=== PATIENT | female | born 1940 | race African-American/Black ===

== ENCOUNTER 2017-07-28 07:40 | Day surgery (SDC) | payer MEDICARE, BC ==
[~2017-07-28 07:40] MED LIST: BUPIVACAINE HCL 0.75% INJ/PF (7.5 MG/1 ML) 10 ML SDV OD PRN; CHONDR SU A NA/HYALUR INTRAOC KIT (SURGICARE) ONE; EPINEPHRINE INJ/PF 1 MG/1 ML AMPULE ONE; KETOROLAC TROMETHAMINE 0.45% 4 DROP/0.4 ML DROPERETTE OD PRN; LIDOCAINE 4% INJ/PF (40 MG/ML) 5 ML AMPUL OD PRN
[2017-07-28] MEDS: CYCLOPENTOLATE 0.2%/PHENYLEPHRINE 1% OPH SOLN 2 ML OD PRN ×3 (08:03→08:17)
[2017-07-28] MEDS: BESIFLOXACIN HCL 0.6% OPH SUSP 5 ML BOTTLE OD PRN ×4 (08:03→08:52)
[2017-07-28] MEDS: TETRACAINE HCL 0.5% OPH SOLN 0.6 ML DROPERETTE OD PRN ×2 (08:03→08:17)
[2017-07-28] MEDS: TROPICAMIDE 1% OPH SOLN 3 ML OD PRN ×3 (08:03→08:17)
[2017-07-28] MEDS ORDERED: MIDAZOLAM 2 MG/2 ML INJ ONE (08:04)
[2017-07-28] MEDS ORDERED: ONDANSETRON HCL INJ/PF 4 MG/2 ML SDV ONE (08:04)
[2017-07-28] MEDS ORDERED: FENTANYL CITRATE INJ/PF 100 MCG/2 ML AMPUL ONE (08:04)
--- NOTE | 2017-07-28 09:23 | [facility] DISCHARGE SUMMARY E ---
[facility] Discharge Summary NAME: GOPI DENT AGE: 77Y ADMITTED: 07/28/2017 DISCHARGED: 07/28/2017 HOSPITAL COURSE: Ms. Dent is a 76-year-old lady who underwent uneventful cataract extraction with Toric intraocular lens implant, right eye, on 07/28/2017. She will be discharged to home. She is instructed to resume preoperative medications, take Tylenol as needed for discomfort, to keep her eye shielded, to use Besivance, Durezol, and Ilevro at 3 p.m. and 8 p.m., and to followup in my office in 1 day. DICTATING PHYSICIAN: EFREN DIETZ M.D. [id number] PHY#: [id number] ID: [id number] JOB#: [id number] ACCT: [id number] cc:EFREN DIETZ M.D. >
--- NOTE | 2017-07-28 09:23 | [facility] OPERATIVE REPORT E ---
[facility] Operative Report NAME: GOPI DENT AGE: 77Y DATE OF SURGERY: 07/28/2017 ROOM: PREOPERATIVE DIAGNOSIS: CATARACT RIGHT EYE. POSTOPERATIVE DIAGNOSIS: CATARACT RIGHT EYE. OPERATION: Phacoemulsification with Toric intraocular lens right eye. SURGEON: EFREN DIETZ M.D. ANESTHESIA: Topical with MAC. INDICATIONS FOR SURGERY: Difficulty reading and driving. Best corrected visual acuity 20/50. PROCEDURE: The patient was placed in the seated position and the 0, 180, and 270-degree axis of the eye was marked using the marking level. Prior to placement of the lens implant, the 166-degree axis was marked on the eye, and the lens was centered at this axis. The patient was brought to the Operating Room and placed on the operative table. Following tetracaine drops, topical anesthesia was administered. This consisted of instrument wipe pledgets soaked in a solution of 4% Xylocaine mixed with 0.75% Marcaine in a 1:2 ratio. A 2 x 1 cm pledget was placed in the superior fornix. A 1 x 1 cm pledget was placed in the inferior fornix. The eye was patched shut for 5 minutes. The patch was removed. The eye was sterilely prepped and draped in the usual manner. Lid speculum was placed in the eye. The pledgets were removed. 4-0 black silk sutures were placed around the superior and the inferior rectus muscles to be used as traction. A conjunctival peritomy was made at the 10 o'clock position. Hemostasis was obtained with bipolar cautery. A posterior limbal groove was created using a crescent knife and dissected anteriorly towards the cornea. A sharp point blade was used to create a paracentesis site at the 2 o'clock position. A 2.4 mm keratome was used to enter the anterior chamber through the groove. Viscoelastic was injected into the anterior chamber. An anterior capsulotomy was performed using Utrata forceps in a capsulorrhexis fashion. Hydrodissection and hydrodelineation were performed. Phacoemulsification was performed in agjdaw-izj-fuqzyhk technique. A total of 45 seconds phaco time was used. Following this, the I/A unit was used to remove residual cortex. Viscoelastic was injected into the capsular bag. Intraocular lens model [id number], 21.0 diopters, serial number [id number] was placed in the capsular bag. The I/A unit was used to remove residual viscoelastic. The wound was seen to be watertight under high and low pressure, and no sutures were placed. The intraocular lens was well centered. The pressure was adjusted in the eye to normal pressure. The 4-0 black silk sutures and lid speculum were removed. The eye was shielded after Besivance drops were placed. The patient tolerated the procedure well and was sent to the Recovery Room in good condition. DICTATING PHYSICIAN: EFREN DIETZ M.D. DICTATING PHYSICIAN: EFREN DIETZ M.D. [id number] PHY#: [id number] ID: [id number] JOB#: [id number] ACCT: [id number] cc:EFREN DIETZ M.D. > MTDD
== END 2017-07-28 09:35 | disposition home or self-care (01) ==
LOC: SC 07:40
PROVIDERS: ATTEND Ophthalmology
PROC: 08RJ3JZ Replacement of Right Lens with Synthetic Substitute, Percutaneous Approach (ICD-10-PCS; principal; 2017-07-28 08:30)
DX: H25.813 Combined forms of age-related cataract, bilateral (principal); H04.123 Dry eye syndrome of bilateral lacrimal glands; H52.03 Hypermetropia, bilateral; D64.9 Anemia, unspecified; M19.90 Unspecified osteoarthritis, unspecified site
CPT/HCPCS: 66984; J2250; J3490 ×3; A9270; J0171; J3010; J2405; 142

== ENCOUNTER 2017-09-01 11:02 | Day surgery (SDC) | payer MEDICARE, OTHER ==
[~2017-09-01 11:02] MED LIST changes: -BUPIVACAINE HCL 0.75% INJ/PF (7.5 MG/1 ML) 10 ML SDV OD PRN; +BUPIVACAINE HCL 0.75% INJ/PF (7.5 MG/1 ML) 10 ML SDV OS PRN; -KETOROLAC TROMETHAMINE 0.45% 4 DROP/0.4 ML DROPERETTE OD PRN; +KETOROLAC TROMETHAMINE 0.45% 4 DROP/0.4 ML DROPERETTE OS PRN; +LIDOCAINE 1% INJ-PF (10 MG/ML) 30 ML SDV ONE; -LIDOCAINE 4% INJ/PF (40 MG/ML) 5 ML AMPUL OD PRN; +LIDOCAINE 4% INJ/PF (40 MG/ML) 5 ML AMPUL OS PRN
[2017-09-01] MEDS: TROPICAMIDE 1% OPH SOLN 3 ML OS PRN ×3 (11:15→11:39)
[2017-09-01] MEDS: CYCLOPENTOLATE 0.2%/PHENYLEPHRINE 1% OPH SOLN 2 ML OS PRN ×3 (11:15→11:39)
[2017-09-01] MEDS: BESIFLOXACIN HCL 0.6% OPH SUSP 5 ML BOTTLE OS PRN ×3 (11:16→12:15)
[2017-09-01] MEDS ORDERED: MIDAZOLAM 2 MG/2 ML INJ ONE (11:20)
[2017-09-01] MEDS: TETRACAINE HCL 0.5% OPH SOLN 0.6 ML DROPERETTE OS PRN ×2 (11:23→11:40)
[2017-09-01] MEDS ORDERED: POVIDONE-IODINE 5% OPH PREP SOLN 30 ML ONE (11:50)
--- NOTE | 2017-09-01 12:49 | [facility] DISCHARGE SUMMARY E ---
[facility] Discharge Summary NAME: GOPI DENT AGE: 77Y ADMITTED: 09/01/2017 DISCHARGED: 09/01/2017 FINAL DIAGNOSIS: CATARACT, LEFT EYE. HOSPITAL COURSE: Ms. Dent is a 77-year-old lady who underwent uneventful cataract extraction with Toric intraocular lens implant, left eye. She will be discharged to home. She is instructed to resume her preoperative medications, take Tylenol as needed for discomfort, keep her eye shielded, to use Besivance, Durezol, and Ilevro at 3 p.m. and 8 p.m. To follow up in my office in 1 day. DICTATING PHYSICIAN: EFREN DIETZ M.D. [id number] PHY#: [id number] ID: [id number] JOB#: [id number] ACCT: [id number] cc:EFREN DIETZ M.D. >
--- NOTE | 2017-09-01 12:49 | [facility] OPERATIVE REPORT E ---
[facility] NAME: GOPI DENT AGE: 77Y DATE OF SURGERY: 09/01/2017 ROOM: [facility] Operative Report PREOPERATIVE DIAGNOSIS: CATARACT, LEFT EYE. POSTOPERATIVE DIAGNOSIS: CATARACT, LEFT EYE. PROCEDURE PERFORMED: PHACOEMULSIFICATION WITH TORIC INTRAOCULAR LENS, LEFT EYE. SURGEON: EFREN DIETZ MD ANESTHESIA: TOPICAL WITH MAC. INDICATIONS FOR SURGERY: Difficulty reading road signs and glare. Visual acuity with glare 20/200. PROCEDURE: Prior to the surgery, the patient was placed in a seated position and the 0, 270, and 180 degree axes of the eye were marked using a marking level. The patient was brought to the Operating Room and placed on the operative table. Following tetracaine drops, topical anesthesia was administered. This consisted of instrument wipe pledgets soaked in a solution of 4% Xylocaine mixed with 0.75% Marcaine in a 1:2 ratio. A 2 x 1 cm pledget was placed in the superior fornix. A 1 x 1 cm pledget was placed in the inferior fornix. The eye was patched shut for 5 minutes. The patch was removed. The eye was sterilely prepped and draped in the usual manner. Lid speculum was placed in the eye. The pledgets were removed. 4-0 black silk sutures were placed around the superior and the inferior rectus muscles to be used as traction. A conjunctival peritomy was made at the 10 o'clock position. Hemostasis was obtained with bipolar cautery. A posterior limbal groove was created using a crescent knife and dissected anteriorly towards the cornea. A sharp point blade was used to create a paracentesis site at the 2 o'clock position. A 2.4 mm keratome was used to enter the anterior chamber through the groove. Viscoelastic was injected into the anterior chamber. An anterior capsulotomy was performed using Utrata forceps in a capsulorrhexis fashion. Hydrodissection and hydrodelineation were performed. Phacoemulsification was performed in yhjnim-jgw-rnhirmk technique. A total of 8.24 CDE phaco time was used. Following this, the I/A unit was used to remove residual cortex. Viscoelastic was injected into the capsular bag. Prior to placing the lens implant, the 16-degree axis was marked on the eye and the lens was centered at this axis. Intraocular lens model [id number], 21.5 diopters, serial number [id number] was placed in the capsular bag. The I/A unit was used to remove residual viscoelastic. The wound was seen to be watertight under high and low pressure, and no sutures were placed. The intraocular lens was well centered. The pressure was adjusted in the eye to normal pressure. The 4-0 black silk sutures and lid speculum were removed. The eye was shielded after Besivance drops were placed. The patient tolerated the procedure well and was sent to the Recovery Room in good condition. DICTATING PHYSICIAN: EFREN DIETZ M.D. DICTATING PHYSICIAN: EFREN DIETZ M.D. [id number] PHY#: [id number] ID: [id number] JOB#: [id number] ACCT: [id number] cc:EFREN DIETZ M.D. >
== END 2017-09-01 12:48 | disposition home or self-care (01) ==
LOC: SC 11:02
PROVIDERS: ATTEND Ophthalmology
PROC: 08RK3JZ Replacement of Left Lens with Synthetic Substitute, Percutaneous Approach (ICD-10-PCS; principal; 2017-09-01 12:00)
DX: H25.812 Combined forms of age-related cataract, left eye (principal); Z96.1 Presence of intraocular lens
CPT/HCPCS: 66984; V2787; J2250; J3490 ×5; A9270; J0171; 142

== ENCOUNTER → 2020-03-28 | Outpatient (CLI) | payer MEDICARE, BC, OTHER ==
--- NOTE | 2020-04-06 10:27 | WOMENS IMAGING REPORT ---
EXAM DESCRIPTION: 3D SCREENING MAMMO BILAT IMAGES COMPLETED DATE/TIME: 03/28/2020 3:55 pm REASON FOR STUDY: Z12.31 ENCNTR SCREEN MAMMOGRAM FOR MALIGNANT NEOPLASM OF BREAST Z12.31 ENCNTR SCR EEN MAMMOGRAM FOR MALIGNANT NEOPLASM OF JOSE COMPARISON: 2015. EXAM PARAMETERS: Views: Standard craniocaudal and mediolateral oblique views of each breast recorded using digital acquisition and breast tomosynthesis. Read with the assistance of CAD. .[facility] - [employer] Hose Seamer Version 9.2 LIMITATIONS: None. FINDINGS: No suspicious masses, suspicious calcifications or architectural distortion. No areas of c oncern. IMPRESSION: NEGATIVE MAMMOGRAM. BIRADS 1. BREAST DENSITY: b. There are scattered areas of fibroglandular density. BIRAD: ASSESSMENT: 1 NEGATIVE RECOMMENDATION: ROUTINE SCREENING COMMENT: The patient has been notified of the results by letter per MQSA requirements. Additional no tification policies are in place for contacting patient with suspicious or incomplete findings. Quality ID #225: The [employer] recommends an annual screening mammogram for women aged 40 years or over. This facility utilizes a reminder system to ensure that all patients receive reminder letters, and/or direct phone calls for appointments. This includes reminders for routine scr eening mammograms, diagnostic mammograms, or other Breast Imaging Interventions when appropriate. Th is patient will be placed in the appropriate reminder system. TECHNICAL DOCUMENTATION: FINDING NUMBER: (1) ASSESSMENT: (1) JOB ID: [id number] 2010 [employer]- All Rights Reserved Reading location - IP/workstation name: [email or web address]
== END ==
LOC: WI 14:50
PROVIDERS: ATTEND Nurse Practitioner
DX: Z12.31 Encounter for screening mammogram for malignant neoplasm of breast (principal)
CPT/HCPCS: 77063; 77067